=== PATIENT | male | born 1940 | race Caucasian/White ===

== ENCOUNTER → 2016-08-07 | Day surgery (SDC) | payer OTHER, BC ==
[~2016-08-07] VITALS: Ht 182.9 cm; Wt 105.0 kg
[~2016-08-07] MED LIST: ALLO100T PO; ASPI-232 PO; ATROPINE SULFATE 0.1 MG/ML 5ML SYR IV PRN; AZEL30SP NAE; CEFAZOLIN 1000MG/55 ML D5W IV SCH; CEFAZOLIN 2000 MG/60 ML D5W IV SCH; CYCL0.052 OP; DICL1GEL34 TOP; DOCU100C31 PO; EpHEDrine SULFATE INJ 50 MG/ML AMP IV PRN; FENTANYL CITRATE INJ 50 MCG/1 ML 2 ML VIAL ONE; HEPARIN SOD (PORCINE) 1000 UNIT/ML 10 ML VIAL FLUSH ONE; LVMI SC; MELATAB2 PO; MIDAZOLAM HCL 1 MG/ML 2ML VIAL ONE; MIX: 0.5% BUPIVACAINE W/EPI 1:200,000+1%LIDO 50:50 INJ ONE; OXYC-57 PO; OXYCODONE/ACETAMINOPHEN 5-325 TAB PO PRN; PATIENT'S HEIGHT AND/OR WEIGHT NEEDED SCH; PROPOFOL IV EMULSION 10 MG/ML 20 ML VIAL IV ONE; SEVE800T7 PO; SODIUM CHLORIDE 0.9% 1000ML 1,000 ML IV SCH; humalog; vitamin D PO
--- NOTE | 2016-08-07 06:15 | History and Physical ---
History & Physical CC: End stage renal disease HPI: Mr. Rivera and his state that he began dialysis back in February due to acute renal failure which occurred at that time for unknown reasons. They state that he has been dialyzing through an IJ PermCath since that time, which was placed while he was at [facility] in [place]. They stated they are currently dialyzing at [facility] and were advised to have a fistula created for permanent hemodialysis needs. He had a left basilic vein fistula created and now is admitted for transposition of the fistula He admits some bilateral shoulder discomfort, which he states started just a few days ago and hurts more when he is attempting to lift or use his arms, but denies other complaints at this time including headaches, fevers, chills, dizziness, chest pain, shortness of breath, abdominal pain, nausea, vomiting, diarrhea, constipation, dysuria, hematuria, rest pain, claudication, nonhealing wounds or ulcers or other complaints. ALLERGIES: INCLUDE CRESTOR AND LIPITOR. HOME MEDICATIONS: Reconciled on the chart and include the following: Allopurinol, aspirin, Azelastine nasal spray, bumetanide, Centrum Silver, Colace , diphenhydramine, hydrocortisone 1% topical cream, Levemir subcutaneous insulin , Renvela, Voltaren topical gel. PAST MEDICAL HISTORY: Positive for gout, diabetes mellitus, renal failure and arthritis. PAST SURGICAL HISTORY: Positive for cholecystectomy and total knee arthroplasty. SOCIAL HISTORY: Positive for a past history of tobacco use. The patient used to smoke 1 pack a day and quit in the year 1999. He denies alcohol or any illicit drug use. FAMILY HISTORY: Positive for diabetes in his mother and hypertension in his mother. REVIEW OF SYSTEMS: Negative for fatigue, fevers, sweats, weight loss, abnormal moles or rashes, vision changes or photophobia, ear pain, sinus problems or sore throat, cough, shortness of breath, hemoptysis, wheezing, chest pain, palpitations or syncope. He does admit bilateral lower extremity edema which is mild and chronic. He denies abdominal pain, nausea, vomiting or diarrhea, dysuria, hematuria, muscle weakness, headaches, dizziness, or seizures. PHYSICAL EXAM: His vital signs were as follows: Blood pressure of 126/62 in the right arm, 120/50 in the left arm, heart rate is 75, and oxygenation 97% on room air. The patient is 182 cm tall and weighs 101 kilograms. Constitutional : In general, patient is a chronically ill-appearing elderly male, in no acute distress. He is in a wheelchair and not particularly ambulatory due to instability. He is in no distress. He is active, alert and oriented x4. His recent and remote memory is accurate, but somewhat vague. His head is normocephalic, atraumatic. His eyes are EOMI. His ENMT exam demonstrates some hearing loss without any pharyngeal erythema. His neck is supple, nontender with midline trachea without masses or crepitus. His lung exam demonstrates no dyspnea. They are decreased throughout but are clear bilaterally. His cardiovascular exam demonstrates nondisplaced apical impulse with a regular rate and rhythm without murmurs, lifts, heaves, thrills or gallops. His peripheral pulses are full and equal in all extremities unless otherwise noted, specifically they are normal in his carotid and brachial pulses. His bilateral radial pulses are +2. His ulnar pulses are +2 as well. His femoral pulses are +3. His bilateral lower extremities distal pulses are +1. He has brisk capillary refill and no sign of distal ischemia. The patient demonstrates no bruit in his carotid, abdominal or femoral area. His abdomen is soft, nontender with normoactive bowel sounds in all 4 quadrants without guarding or rebound. He does have a rather large ventral hernia in the location of a previous surgical incision. This is easily reducible and nontender. His musculoskeletal exam demonstrates normal tone and strength for age. His bilateral upper extremities demonstrate no cyanosis, edema, clubbing, varicosities or ulcers. The patient's bilateral lower extremities do demonstrate some skin changes consistent with chronic venous insufficiency. He does have +1 edema which is pitting and pretibial. There are no ulcerations or signs of cyanosis. Neurologically, patient has grossly intact cranial nerves and grossly intact sensation. ASSESSMENT AND PLAN: End-stage renal disease on hemodialysis. Post left basilic vein fistula PLAN: The patient is admitted for a left upper arm basilic vein arteriovenous transposition. The procedure, risks, benefits, alternatives were discussed at length with the patient. He expressed understanding and agreement to proceed. This was also discussed with his present and she is agreeable as well.
[2016-08-07 08:41] VITALS: BP 137/51; PULSE 86; TEMP 36.5; O2SAT 97; Ht 182.9 cm; Wt 105.0 kg
[2016-08-07 09:10] LABS: PROTHROMBIN TIME (PATIENT) 10.7 SECONDS (9.0-12.0)
[2016-08-07 09:24] LABS: BUN/CREATININE RATIO 13.6 (10-20); CALCIUM 9.7 mg/dl (8.5-10.1); CREATININE 2.8 mg/dl (0.60-1.40); POTASSIUM 3.6 mmol/L (3.5-5.1)
--- NOTE | 2016-08-07 10:09 | History & Physical Bridge Note ---
H&P Re-Evaluation Bridge Note: I have examined the patient, reviewed the History & Physical and in the interval since the performance of the History & Physical I have noted the following changes of clinical significance: No changes noted
--- NOTE | 2016-08-07 12:14 | [facility] Post Operative Brief Note ---
Immediate Operative Summary Operative Date Aug 07, 2016. Pre-Operative Diagnosis End-stage renal disease on hemodialysis Post-Operative Diagnosis Same as preoperative diagnosis Procedure(s) Performed Left Arm Basilic Vein Transposition Surgeon Dr. Percy Todd Geophysical Support Specialist Surgeon(s) Rosario Kim PA-C Estimated Blood Loss 20 Findings Good thrill, large vein Specimens none Anesthesia MAC Complication(s) None Disposition Recovery Room / PACU
--- NOTE | 2016-08-07 12:18 | Discharge Instructions ---
Discharge Instructions Visit Reason for Visit: End Stage Renal Disease Discharge Discharge Diagnosis / Problem: End stage renal disease Discharge Goals Goal(s): Therapeutic intervention Activity Recommendations Activity Limitations: per Instructions/Follow-up section Anesthesia . Post Anesthesia Instructions: If you have had General Anesthesia or IV Sedation: * Do not drive today. * Resume driving when surgeon permits. * Do not make important decisions or sign legal documents today. * Call surgeon for: 1. Temperature elevations greater than 101 degrees F. 2. Uncontrollable pain. 3. Excessive bleeding. 4. Persistent nausea and vomiting. 5. Medication intolerance (nausea, vomiting or rash). * For nausea and vomiting use only clear liquids such as: tea, soda, bouillon until nausea subsides, then gradually increase diet as tolerated. * If you have any concerns or questions, call your surgeon's office. If physician is unavailable and it is an emergency, call 911 or go to the nearest emergency room. . Instructions / Follow-Up Instructions / Follow-Up Call [phone] to schedule a follow up appointment if one not already scheduled. ACTIVITY RECOMMENDATIONS: See Above SPECIAL CARE INSTRUCTIONS: Call your doctor if: * Temperature above 101 degrees * Pain not relieved by pain medicine ordered * There is increased drainage or redness from any incision * You have any unanswered questions or concerns. Diet Recommendations Recommended Home Diet: resume previous diet Procedures Procedures Performed: Left upper basilic vein transposition Pending Studies Studies pending at discharge: no Medical Emergencies . Who to Call and When: Medical Emergencies: If at any time you feel your situation is an emergency, please call 911 immediately. . Non-Emergent Contact Non-Emergency issues call your: Surgeon . . "Provider Documentation" section prepared by Percy Todd.
--- NOTE | 2016-08-07 12:51 | OPERATIVE REPORT ---
DATE OF OPERATION: 08/07/2016 PREOPERATIVE DIAGNOSIS: End-stage renal disease. POSTOPERATIVE DIAGNOSIS: Same. PROCEDURE: Left upper arm basilic vein transposition second stage. SURGEON: Dr. Todd. SHEARING SUPERVISOR: Rosario Kim PA-C. ANESTHETIC: MAC. PROCEDURE INDICATIONS: The patient is a 76-year-old gentleman who had a left upper arm basilic vein fistula created. He is now admitted for transposition of the fistula. He understood the risks, options and benefits and agreed to have this procedure. DESCRIPTION OF PROCEDURE: The patient was taken to the operating room and placed in supine position. After left arm was prepped and draped in a sterile manner, local anesthetic was administered. A long incision was made from the antecubital crease up to the anterior axillary line over the basilic vein. It was exposed in its entirety. All side branches were ligated and divided. The care was taken to preserve the nerves around the basilic vein. Once it was all freed up, the proximal portion of the basilic vein just beyond the arterial anastomosis was clamped proximally and distally. This was then transected transversely. A subcutaneous tunnel was then made superficial and anterior in the arm. The basilic vein was passed through the tunnel. The basilic vein was huge. It was approximately 8 mm at the proximal and 16 mm at the shoulder. Once it was passed through the tunnel, it was irrigated to make sure there were no kinks. The vein sat nicely in the tunnel. An end-to-end anastomosis was then accomplished using running 6-0 Prolene suture in the usual vascular fashion. Prior to completing the closure, backbleeding and forward bleeding was allowed to occur and final few sutures were placed and securely tied. Clamps were then removed. Excellent thrill was felt. There was a counterincision made to help passed the fistula in the new tunnel. Once adequate hemostasis was seen in both these incisions, they were closed with a running 3-0 Vicryl for subcutaneous layer and a running 4-0 subcuticular Vicryl suture for the skin edges. Of the small incisions, teresa were used for a longer incision. Sterile dressings were applied to the wound. The patient left the operating room in satisfactory condition and tolerated the procedure well. Rosario Kim assisted due to lack of resident availability. I attest to the content of the Intraoperative Record and any orders documented therein. Any exceptions are noted below. MTDD
--- NOTE | 2016-08-07 12:54 | Anesthesiology Progress Note ---
Anesthesia Post Op Note Date & Time Aug 07, 2016 at 12:53 Vital Signs Pain Intensity: 0 Vital Signs Past 12 Hours Date Time Temp Pulse Resp B/P Pulse Ox O2 Delivery O2 Flow Rate FiO2 08/07/16 12:45 69 18 123/63 97 Room Air 08/07/16 12:37 36.6 68 16 130/54 92 Room Air 08/07/16 08:41 36.5 86 18 137/51 97 Room Air Notes Mental Status: alert / awake / arousable, participated in evaluation Pt Amnestic to Procedure: Yes Nausea / Vomiting: adequately controlled Pain: adequately controlled Airway Patency, RR, SpO2: stable & adequate BP & HR: stable & adequate Hydration State: stable & adequate Anesthetic Complications: no major complications apparent
[2016-08-07 13:00] VITALS: BP 130/49; PULSE 68; TEMP 36.6; O2SAT 92
[2016-08-07 13:30] VITALS: BP 138/53; PULSE 72; TEMP 36.8; O2SAT 93
[2016-08-07 14:00] VITALS: BP 135/51; PULSE 74; TEMP 36.8; O2SAT 93
--- NOTE | 2016-08-07 15:15 | Progress Note ---
Progress Note I assisted Dr Todd with Shelton Rivera's Left upper arm basilic vein transposition second stage on 08/07/16, d/t lack of resident availability.
== END | disposition home or self-care (01) ==
LOC: C.ACU 07:53
PROVIDERS: ATTEND Surgery Vascular Surgery
DX: N18.6 End stage renal disease (principal); Z99.2 Dependence on renal dialysis; J44.9 Chronic obstructive pulmonary disease, unspecified; G47.33 Obstructive sleep apnea (adult) (pediatric); I25.10 Atherosclerotic heart disease of native coronary artery without angina pectoris; I12.0 Hypertensive chronic kidney disease with stage 5 chronic kidney disease or end stage renal disease; M10.9 Gout, unspecified; Z79.4 Long term (current) use of insulin; Z90.49 Acquired absence of other specified parts of digestive tract; Z96.651 Presence of right artificial knee joint; Z87.891 Personal history of nicotine dependence; Z83.3 Family history of diabetes mellitus; Z82.49 Family history of ischemic heart disease and other diseases of the circulatory system; E66.9 Obesity, unspecified; E11.22 Type 2 diabetes mellitus with diabetic chronic kidney disease

== ENCOUNTER → 2016-09-24 | Day surgery (SDC) | payer OTHER, BC ==
[~2016-09-24] MED LIST changes: -ATROPINE SULFATE 0.1 MG/ML 5ML SYR IV PRN; -CEFAZOLIN 1000MG/55 ML D5W IV SCH; -CEFAZOLIN 2000 MG/60 ML D5W IV SCH; -EpHEDrine SULFATE INJ 50 MG/ML AMP IV PRN; -FENTANYL CITRATE INJ 50 MCG/1 ML 2 ML VIAL ONE; -HEPARIN SOD (PORCINE) 1000 UNIT/ML 10 ML VIAL FLUSH ONE; -MIDAZOLAM HCL 1 MG/ML 2ML VIAL ONE; -MIX: 0.5% BUPIVACAINE W/EPI 1:200,000+1%LIDO 50:50 INJ ONE; -OXYCODONE/ACETAMINOPHEN 5-325 TAB PO PRN; -PATIENT'S HEIGHT AND/OR WEIGHT NEEDED SCH; -PROPOFOL IV EMULSION 10 MG/ML 20 ML VIAL IV ONE; -SODIUM CHLORIDE 0.9% 1000ML 1,000 ML IV SCH; -vitamin D PO
== END | disposition home or self-care (01) ==
LOC: C.ACU 06:39
PROVIDERS: ATTEND Surgery Vascular Surgery
DX: Z45.2 Encounter for adjustment and management of vascular access device (principal); N18.6 End stage renal disease; Z53.8 Procedure and treatment not carried out for other reasons

== ENCOUNTER → 2016-09-28 | Day surgery (SDC) | payer OTHER, BC ==
[~2016-09-28] VITALS: Ht 182.9 cm; Wt 102.0 kg
[~2016-09-28] MED LIST changes: +LIDOCAINE HCL 1% 20 ML VIAL INFIL ONE; +LIDOCAINE HCL 1% 20 ML VIAL ONE
--- NOTE | 2016-09-28 07:13 | History and Physical ---
History & Physical Date of Service Sep 28, 2016. History & Physical CC: End stage renal disease, functioning av fistula HPI: Mr. Rivera and his state that he began dialysis back in February due to acute renal failure which occurred at that time for unknown reasons. They state that he has been dialyzing through an IJ PermCath since that time, which was placed while he was at [facility] in [place]. They stated they are currently dialyzing at [facility] [address] and were advised to have a fistula created for permanent hemodialysis needs. He had a left basilic vein fistula created and underwent a transposition of the fistula. He is here for removal of his hermcath. He denies other complaints at this time including headaches, fevers, chills, dizziness, chest pain, shortness of breath, abdominal pain, nausea, vomiting, diarrhea, constipation, dysuria, hematuria, rest pain, claudication, nonhealing wounds or ulcers or other complaints. ALLERGIES: INCLUDE CRESTOR AND LIPITOR. HOME MEDICATIONS: Reconciled on the chart and include the following: Allopurinol, aspirin, Azelastine nasal spray, bumetanide, Centrum Silver, Colace , diphenhydramine, hydrocortisone 1% topical cream, Levemir subcutaneous insulin , Renvela, Voltaren topical gel. PAST MEDICAL HISTORY: Positive for gout, diabetes mellitus, renal failure and arthritis. PAST SURGICAL HISTORY: Positive for cholecystectomy and total knee arthroplasty. SOCIAL HISTORY: Positive for a past history of tobacco use. The patient used to smoke 1 pack a day and quit in the year 1999. He denies alcohol or any illicit drug use. FAMILY HISTORY: Positive for diabetes in his mother and hypertension in his mother. REVIEW OF SYSTEMS: Negative for fatigue, fevers, sweats, weight loss, abnormal moles or rashes, vision changes or photophobia, ear pain, sinus problems or sore throat, cough, shortness of breath, hemoptysis, wheezing, chest pain, palpitations or syncope. He does admit bilateral lower extremity edema which is mild and chronic. He denies abdominal pain, nausea, vomiting or diarrhea, dysuria, hematuria, muscle weakness, headaches, dizziness, or seizures. PHYSICAL EXAM: His vital signs were as follows: Blood pressure of 126/62 in the right arm, 120/50 in the left arm, heart rate is 75, and oxygenation 97% on room air. The patient is 182 cm tall and weighs 101 kilograms. Constitutional : In general, patient is a chronically ill-appearing elderly male, in no acute distress. He is in a wheelchair and not particularly ambulatory due to instability. He is in no distress. He is active, alert and oriented x4. His recent and remote memory is accurate, but somewhat vague. His head is normocephalic, atraumatic. His eyes are EOMI. His ENMT exam demonstrates some hearing loss without any pharyngeal erythema. His neck is supple, nontender with midline trachea without masses or crepitus. His lung exam demonstrates no dyspnea. They are decreased throughout but are clear bilaterally. His cardiovascular exam demonstrates nondisplaced apical impulse with a regular rate and rhythm without murmurs, lifts, heaves, thrills or gallops. His peripheral pulses are full and equal in all extremities unless otherwise noted, specifically they are normal in his carotid and brachial pulses. His bilateral radial pulses are +2. His ulnar pulses are +2 as well. His femoral pulses are +3. His bilateral lower extremities distal pulses are +1. He has brisk capillary refill and no sign of distal ischemia. The patient demonstrates no bruit in his carotid, abdominal or femoral area. His abdomen is soft, nontender with normoactive bowel sounds in all 4 quadrants without guarding or rebound. He does have a rather large ventral hernia in the location of a previous surgical incision. This is easily reducible and nontender. His musculoskeletal exam demonstrates normal tone and strength for age. His bilateral upper extremities demonstrate no cyanosis, edema, clubbing, varicosities or ulcers. The patient's bilateral lower extremities do demonstrate some skin changes consistent with chronic venous insufficiency. He does have +1 edema which is pitting and pretibial. There are no ulcerations or signs of cyanosis. Neurologically, patient has grossly intact cranial nerves and grossly intact sensation. ASSESSMENT AND PLAN: End-stage renal disease on hemodialysis. Functioning fistula PLAN: The patient is admitted for removal of his permcath. The procedure, risks , benefits, alternatives were discussed at length with the patient. He expressed understanding and agreement to proceed. This was also discussed with his present and she is agreeable as well.
[2016-09-28 08:46] VITALS: BP 141/61; PULSE 75; TEMP 36.6; O2SAT 96; Ht 182.9 cm; Wt 102.0 kg
--- NOTE | 2016-09-28 09:36 | [facility] Post Operative Brief Note ---
Immediate Operative Summary Operative Date Sep 28, 2016. Pre-Operative Diagnosis Functioning Fistula Post-Operative Diagnosis Same Procedure(s) Performed Perm Cath Removal Surgeon Peyton Nitrator Operator Surgeon(s) None Estimated Blood Loss 0 Findings catheter and cuff removed Specimens a; Perm Cath Anesthesia Local Complication(s) None Disposition
--- NOTE | 2016-09-28 09:40 | Discharge Instructions ---
Discharge Instructions Visit Reason for Visit: End Stage Renal Disease Discharge Discharge Diagnosis / Problem: Functioning fistula, post permcath insertion Discharge Goals Goal(s): Therapeutic intervention Activity Recommendations Activity Limitations: per Instructions/Follow-up section Anesthesia . Post Anesthesia Instructions: If you have had General Anesthesia or IV Sedation: * Do not drive today. * Resume driving when surgeon permits. * Do not make important decisions or sign legal documents today. * Call surgeon for: 1. Temperature elevations greater than 101 degrees F. 2. Uncontrollable pain. 3. Excessive bleeding. 4. Persistent nausea and vomiting. 5. Medication intolerance (nausea, vomiting or rash). * For nausea and vomiting use only clear liquids such as: tea, soda, bouillon until nausea subsides, then gradually increase diet as tolerated. * If you have any concerns or questions, call your surgeon's office. If physician is unavailable and it is an emergency, call 911 or go to the nearest emergency room. . Instructions / Follow-Up Instructions / Follow-Up Call [phone] with any questions or concerns. Remove dressing tomorrow, may shower starting tomorrow, replace dressing with a band aid or small dressing if needed. SPECIAL CARE INSTRUCTIONS: Medications: * Continue to take your medications as directed. If you have been given a prescription for Plavix, please fill it immediately and take as directed. Incision Care: * Your puncture site may have some bruising and minor swelling for about one week. * You will have a small dressing covering your puncture site. You may remove the dressing after 24 hours and shower. You may let the warm soapy water run over it, but be sure to dry the puncture site well and keep it dry. * DO NOT IMMERSE THE INCISION IN A TUB/POOL/etc. UNTIL HEALED. * Puncture sites should be kept covered with a band-aid until it begins to heal. Restrictions: * Depending on whether you leg or arm was punctured to access the arteries, you will be required to lay flat, hold your arm still, or both, for about 4 hours after the procedure to prevent bleeding. * Limit your activity for the first 48 hours. You may walk and go up and down steps. Avoid excessive bending or movement at the puncture site. Possible Complications: * Excessive Swelling - after blood flow is improved you may notice increased swelling in the lower legs. This is a normal response. This usually depends on the amount of blockages in the leg, how long they have been there prior to your procedure and how much blood flow was restored. Elevating your legs will help to improve this. Please notify our office ([phone] ) if the swelling does not go away after lying in bed overnight. * Infection/Drainage/Bleeding - Drainage or bleeding from the puncture site should be minimal. If you have excessive bleeding or drainage, call our office ([phone]) right away. * Pain - You may experience some mild pain or soreness at your puncture site. If your pain does not improve, please contact our office ([phone]). Call your doctor and seek emergent treatment if you develop: * Temperature above 101 degrees * Any fever or chills * Any redness or purulent drainage from the puncture site * Any new dusky/blue colored toes or feet with coolness or sharp or aching pain. SKIN IRRITATION: * You may experience some redness and/or swelling in the area where radiation was administered. If any skin irritation occurs, please contact your family physician. FOLLOW UP VISIT: Keep any scheduled doctor appointments. Diet Recommendations Recommended Home Diet: resume previous diet Procedures Procedures Performed: Perm Cath Removal Pending Studies Studies pending at discharge: no Medical Emergencies . Who to Call and When: Medical Emergencies: If at any time you feel your situation is an emergency, please call 911 immediately. . Non-Emergent Contact Non-Emergency issues call your: Surgeon . . "Provider Documentation" section prepared by Percy Todd.
[2016-09-28 09:43] VITALS: BP 156/64; PULSE 73; TEMP 36.7; O2SAT 94
--- NOTE | 2016-09-28 09:50 | DIAGNOSTIC IMAGING REPORT ---
DATE OF PROCEDURE: 09/28/2016 PREOPERATIVE DIAGNOSIS: Functioning fistula. POSTOPERATIVE DIAGNOSIS: Same. PROCEDURE: Removal of right internal jugular vein PermCath. SURGEON: Dr. Todd. ANESTHETIC: Local. PROCEDURE INDICATIONS: The patient is a 76-year-old gentleman who now has a fistula which is functioning well. He is here for removal of his PermCath. He understood the risks, options and benefits and agreed to go ahead with this procedure. The patient was taken to the angio suite and placed in supine position. After right side of the neck and catheter were prepped and draped in a sterile manner, local anesthetic was administered. Using sharp and blunt dissection, the cuff was freed up from the surrounding fibrous tissue. Once this was incised, the catheter slid out easily. Pressure was applied. Adequate hemostasis was obtained. After adequate hemostasis was noted sterile dressing was applied to the wound. The patient left the angio suite in good condition and tolerated the procedure well.
[2016-09-28 10:15] VITALS: BP 150/64; PULSE 70; TEMP 36.7; O2SAT 95
== END | disposition home or self-care (01) ==
LOC: C.ACU 08:01
PROVIDERS: ATTEND Surgery Vascular Surgery
DX: Z45.2 Encounter for adjustment and management of vascular access device (principal); N18.6 End stage renal disease; E11.9 Type 2 diabetes mellitus without complications; M10.9 Gout, unspecified; Z98.890 Other specified postprocedural states; Z87.891 Personal history of nicotine dependence

== ENCOUNTER → 2017-07-19 | Day surgery (SDC) | payer OTHER, BC ==
[2017-07-16 13:58] VITALS: BMI 29.0
[~2017-07-19] VITALS: Ht 182.9 cm; Wt 98.0 kg
[~2017-07-19] MED LIST changes: +ATROPINE SULFATE 0.1 MG/ML 5ML SYR IV PRN; +BMX1 PO; +CEFAZOLIN 2000MG IV PUSH 10 ML IV SCH; +D5W AND 1/4NSS 1000 ML IV SCH; -DICL1GEL34 TOP; +DIPH50TA10 PO; +EpHEDrine SULFATE INJ 50 MG/ML AMP IV PRN; +FENTANYL CITRATE INJ 50 MCG/1 ML 2 ML VIAL IV PRN; +FENTANYL CITRATE INJ 50 MCG/1 ML 2 ML VIAL ONE; +FERR1TAB68 PO; +HYDROmorphone INJ 1 MG/ML SYR IV PRN; +LABETALOL HCL IV 5 MG/ML 20ML IV PRN; -LIDOCAINE HCL 1% 20 ML VIAL INFIL ONE; +LIDOCAINE HCL 1% 20 ML VIAL INJ ONE; -LIDOCAINE HCL 1% 20 ML VIAL ONE; +MEPERIDINE HCL 25 MG/ML CARP IV PRN; +MIDAZOLAM HCL 1 MG/ML 2ML VIAL ONE; +NOVOLOG SQ; +ONDANSETRON INJ 2 MG/ML 2 ML VIAL IV PRN; +OPTIRAY 300 IV ONE; -OXYC-57 PO; -SEVE800T7 PO; +SODIUM CHLORIDE 0.9% 1000ML 1,000 ML IV SCH; -humalog
[2017-07-19 06:40] VITALS: BP 138/63; PULSE 75; TEMP 36.6; O2SAT 94; Ht 182.9 cm; Wt 98.0 kg
--- NOTE | 2017-07-19 06:47 | History and Physical ---
History & Physical Date of Service Jul 19, 2017. History & Physical CC: End stage renal disease, malfunctioning av fistula HPI: Mr. Rivera and his state that he began dialysis back in February due to acute renal failure which occurred at that time for unknown reasons. They state that he has been dialyzing through an IJ PermCath since that time, which was placed while he was at [facility] in [place]. They stated they are currently dialyzing at [facility] and were advised to have a fistula created for permanent hemodialysis needs. He had a left basilic vein fistula created and underwent a transposition of the fistula. He had his permcath reemoved and now has problems with his runs. He is here for a fistulogram with possible intervention. He denies other complaints at this time including headaches, fevers, chills, dizziness, chest pain, shortness of breath, abdominal pain, nausea, vomiting, diarrhea, constipation, dysuria, hematuria, rest pain, claudication, nonhealing wounds or ulcers or other complaints. ALLERGIES: INCLUDE CRESTOR AND LIPITOR. HOME MEDICATIONS: Reconciled on the chart and include the following: Allopurinol, aspirin, Azelastine nasal spray, bumetanide, Centrum Silver, Colace , diphenhydramine, hydrocortisone 1% topical cream, Levemir subcutaneous insulin , Renvela, Voltaren topical gel. PAST MEDICAL HISTORY: Positive for gout, diabetes mellitus, renal failure and arthritis. PAST SURGICAL HISTORY: Positive for cholecystectomy and total knee arthroplasty. SOCIAL HISTORY: Positive for a past history of tobacco use. The patient used to smoke 1 pack a day and quit in the year 1999. He denies alcohol or any illicit drug use. FAMILY HISTORY: Positive for diabetes in his mother and hypertension in his mother. REVIEW OF SYSTEMS: Negative for fatigue, fevers, sweats, weight loss, abnormal moles or rashes, vision changes or photophobia, ear pain, sinus problems or sore throat, cough, shortness of breath, hemoptysis, wheezing, chest pain, palpitations or syncope. He does admit bilateral lower extremity edema which is mild and chronic. He denies abdominal pain, nausea, vomiting or diarrhea, dysuria, hematuria, muscle weakness, headaches, dizziness, or seizures. PHYSICAL EXAM: His vital signs were as follows: Blood pressure of 126/62 in the right arm, 120/50 in the left arm, heart rate is 75, and oxygenation 97% on room air. The patient is 182 cm tall and weighs 101 kilograms. Constitutional : In general, patient is a chronically ill-appearing elderly male, in no acute distress. He is in a wheelchair and not particularly ambulatory due to instability. He is in no distress. He is active, alert and oriented x4. His recent and remote memory is accurate, but somewhat vague. His head is normocephalic, atraumatic. His eyes are EOMI. His ENMT exam demonstrates some hearing loss without any pharyngeal erythema. His neck is supple, nontender with midline trachea without masses or crepitus. His lung exam demonstrates no dyspnea. They are decreased throughout but are clear bilaterally. His cardiovascular exam demonstrates nondisplaced apical impulse with a regular rate and rhythm without murmurs, lifts, heaves, thrills or gallops. His peripheral pulses are full and equal in all extremities unless otherwise noted, specifically they are normal in his carotid and brachial pulses. His bilateral radial pulses are +2. His ulnar pulses are +2 as well. His femoral pulses are +3. His bilateral lower extremities distal pulses are +1. He has brisk capillary refill and no sign of distal ischemia. The patient demonstrates no bruit in his carotid, abdominal or femoral area. His abdomen is soft, nontender with normoactive bowel sounds in all 4 quadrants without guarding or rebound. He does have a rather large ventral hernia in the location of a previous surgical incision. This is easily reducible and nontender. His musculoskeletal exam demonstrates normal tone and strength for age. His bilateral upper extremities demonstrate no cyanosis, edema, clubbing, varicosities or ulcers. The patient's bilateral lower extremities do demonstrate some skin changes consistent with chronic venous insufficiency. He does have +1 edema which is pitting and pretibial. There are no ulcerations or signs of cyanosis. Neurologically, patient has grossly intact cranial nerves and grossly intact sensation. ASSESSMENT AND PLAN: End-stage renal disease on hemodialysis. Malfunctioning fistula PLAN: The patient is admitted for a fistulogram with possible intervention. The procedure, risks, benefits, alternatives were discussed at length with the patient. He expressed understanding and agreement to proceed. This was also discussed with his present and she is agreeable as well.
[2017-07-19 08:00] LABS: CALCIUM 9.6 mg/dl (8.5-10.1); CREATININE 4.56 mg/dl (0.60-1.40); POTASSIUM 4.6 mmol/L (3.5-5.1)
--- NOTE | 2017-07-19 08:36 | [facility] Post Operative Brief Note ---
Immediate Operative Summary Operative Date Jul 19, 2017. Pre-Operative Diagnosis Malfunctioning Fistula Post-Operative Diagnosis Same Procedure(s) Performed Fistulogram, Percutaneous Transluminal Angioplasty Venous Surgeon Dr. Todd Raw Sampler Surgeon(s) None Estimated Blood Loss 5 Findings No residual stenosis Specimens None Anesthesia Local with sedation Complication(s) None Disposition
--- NOTE | 2017-07-19 08:39 | Discharge Instructions ---
Discharge Instructions Date of Service Jul 19, 2017. Visit Reason for Visit: End Stage Renal Disease -On Hemodialysis Discharge Discharge Diagnosis / Problem: Malfunctioning left arm fistula Discharge Goals Goal(s): Therapeutic intervention Activity Recommendations Activity Limitations: per Instructions/Follow-up section Anesthesia . Post Anesthesia Instructions: If you have had General Anesthesia or IV Sedation: * Do not drive today. * Resume driving when surgeon permits. * Do not make important decisions or sign legal documents today. * Call surgeon for: 1. Temperature elevations greater than 101 degrees F. 2. Uncontrollable pain. 3. Excessive bleeding. 4. Persistent nausea and vomiting. 5. Medication intolerance (nausea, vomiting or rash). * For nausea and vomiting use only clear liquids such as: tea, soda, bouillon until nausea subsides, then gradually increase diet as tolerated. * If you have any concerns or questions, call your surgeon's office. If physician is unavailable and it is an emergency, call 911 or go to the nearest emergency room. . Instructions / Follow-Up Instructions / Follow-Up Call [phone] with any questions or concerns. SPECIAL CARE INSTRUCTIONS: Medications: * Continue to take your medications as directed. If you have been given a prescription for Plavix, please fill it immediately and take as directed. Incision Care: * Your puncture site may have some bruising and minor swelling for about one week. * You will have a small dressing covering your puncture site. You may remove the dressing after 24 hours and shower. You may let the warm soapy water run over it, but be sure to dry the puncture site well and keep it dry. * DO NOT IMMERSE THE INCISION IN A TUB/POOL/etc. UNTIL HEALED. * Puncture sites should be kept covered with a band-aid until it begins to heal. Restrictions: * Depending on whether you leg or arm was punctured to access the arteries, you will be required to lay flat, hold your arm still, or both, for about 4 hours after the procedure to prevent bleeding. * Limit your activity for the first 48 hours. You may walk and go up and down steps. Avoid excessive bending or movement at the puncture site. Possible Complications: * Excessive Swelling - after blood flow is improved you may notice increased swelling in the lower legs. This is a normal response. This usually depends on the amount of blockages in the leg, how long they have been there prior to your procedure and how much blood flow was restored. Elevating your legs will help to improve this. Please notify our office ([phone] ) if the swelling does not go away after lying in bed overnight. * Infection/Drainage/Bleeding - Drainage or bleeding from the puncture site should be minimal. If you have excessive bleeding or drainage, call our office ([phone]) right away. * Pain - You may experience some mild pain or soreness at your puncture site. If your pain does not improve, please contact our office ([phone]). Call your doctor and seek emergent treatment if you develop: * Temperature above 101 degrees * Any fever or chills * Any redness or purulent drainage from the puncture site * Any new dusky/blue colored toes or feet with coolness or sharp or aching pain. SKIN IRRITATION: * You may experience some redness and/or swelling in the area where radiation was administered. If any skin irritation occurs, please contact your family physician. FOLLOW UP VISIT: Keep any scheduled doctor appointments. Diet Recommendations Recommended Home Diet: resume previous diet Procedures Procedures Performed: Fistulogram, Percutaneous Transluminal Angioplasty Venous Pending Studies Studies pending at discharge: no Medical Emergencies . Who to Call and When: Medical Emergencies: If at any time you feel your situation is an emergency, please call 911 immediately. . Non-Emergent Contact Non-Emergency issues call your: Surgeon . . "Provider Documentation" section prepared by Percy Todd. .
[2017-07-19 08:40] VITALS: BP 128/60; PULSE 79; TEMP 36.4; O2SAT 95
[2017-07-19 08:55] VITALS: BP 134/70; PULSE 78; O2SAT 93
--- NOTE | 2017-07-19 09:02 | [facility] Operative Report ---
Operative Report Operative Date Jul 19, 2017. Pre-Operative Diagnosis Malfunctioning Fistula Post-Operative Diagnosis Same Procedure(s) Performed Fistulogram, Percutaneous Transluminal Angioplasty Venous Surgeon Dr. Todd Emergency Medicine Nurse Practitioner Surgeon(s) None Estimated Blood Loss 5 Findings A proximal venous stenosis was noted. Specimens None Anesthesia Local with sedation Disposition Indications This is a 77-year-old gentleman with a left arm fistula which is malfunctioning. He is having poor runs. Fistulogram was recommended. I have discussed the risks options and benefits of the procedure with the patient. The patient understands the risks options and benefits and agrees to the procedure. Description of Procedure The patient was taken to the angiogram suite and placed in the supine position. The left arm was then prepped and draped in a sterile manner. Local anesthetic was administered and a percutaneous puncture was then made of the proximal portion of the left arm AV fistula using micropuncture technique. Micropuncture wire and sheath were then inserted. A fistulogram was then performed. The fistulogram revealed a severe stenosis in the proximal portion of the fistula just beyond the anastomosis. The rest of the outflow venous system was widely patent through the superior vena cava. The micropuncture sheath was pulled and pressure was applied. Adequate hemostasis was obtained. Local anesthetic was administered at the upper part of the fistula. A retrograde puncture was made using micropuncture technique. The micropuncture sheath was then exchanged for a 6 [place] sheath. An 035 wire was passed down through the lesion. We then used an 8 x 4 balloon to dilate the stenotic area. It dilated up nicely with 15 bulmaro of pressure. Post dilatation fistulogram showed the fistula be widely patent with no residual stenosis. There was a good thrill felt. The balloon and the wire were then removed. The sheath was then pulled and pressure was applied. Adequate hemostasis was obtained. The patient left the angiogram suite in good condition and tolerated the procedure well. I attest to the content of the Intraoperative Record and any orders documented therein. Any exceptions are noted below.
--- NOTE | 2017-07-19 11:11 | Anesthesiology Progress Note ---
Anesthesia Post Op Note Date & Time Jul 19, 2017 at 11:10 Vital Signs Pain Intensity: 0 Vital Signs Past 12 Hours Date Time Temp Pulse Resp B/P (MAP) Pulse Ox O2 Delivery O2 Flow Rate FiO2 07/19/17 08:55 78 18 134/70 93 Room Air 07/19/17 08:40 36.4 79 18 128/60 95 Room Air 07/19/17 06:40 36.6 75 20 138/63 (88) 94 Room Air Notes Mental Status: alert / awake / arousable, participated in evaluation Pt Amnestic to Procedure: Yes Nausea / Vomiting: adequately controlled Pain: adequately controlled Airway Patency, RR, SpO2: stable & adequate BP & HR: stable & adequate Hydration State: stable & adequate Anesthetic Complications: no major complications apparent
== END | disposition home or self-care (01) ==
LOC: C.ACU 06:16
PROVIDERS: ATTEND Surgery Vascular Surgery
DX: T82.898A Other specified complication of vascular prosthetic devices, implants and grafts, initial encounter (principal); N18.6 End stage renal disease; Y82.8 Other medical devices associated with adverse incidents; E11.9 Type 2 diabetes mellitus without complications; M10.9 Gout, unspecified; F41.9 Anxiety disorder, unspecified; G47.33 Obstructive sleep apnea (adult) (pediatric); J44.9 Chronic obstructive pulmonary disease, unspecified; M19.90 Unspecified osteoarthritis, unspecified site; Z90.49 Acquired absence of other specified parts of digestive tract; Z96.659 Presence of unspecified artificial knee joint; Z79.4 Long term (current) use of insulin; Z79.82 Long term (current) use of aspirin; Z99.2 Dependence on renal dialysis